=== PATIENT | male | born 1965 | race Caucasian/White ===

== ENCOUNTER → 2018-12-28 | Outpatient (CLI) | payer OTHER ==
[2018-12-28 10:08] LABS: ABSOLUTE EOSINOPHILS 0.2 thou/uL (0.0-0.7); ABSOLUTE LYMPHOCYTES 1.7 thou/uL (0.8-5.3); ABSOLUTE MONOCYTES 0.4 thou/uL (0.0-1.2); ABSOLUTE NEUTROPHILS 2.5 thou/uL (1.6-8.1); BASOPHILS 0.7 %; EOSINOPHILS 3.4 %; HEMOGLOBIN 17.9 gm/dL (14.0-18.0); LYMPHOCYTES 34.5 %; MCH 34.3 pg (26.0-34.0); MCHC 35.1 g/dL (28.0-37.0); MCV 97.7 fL (80.0-100.0); MONOCYTES 9.3 %; MPV 7.3 fl. (7.2-11.1); NUCLEATED RBCS 0 /100WBC; PLATELET COUNT* 256 thou/uL (150-400); POLYS 52.1 %; RBC 5.22 mil/uL (4.50-6.00); RDW-CV 13.2 % (10.5-14.5); WBC 4.8 thou/uL (4.0-11.0)
[2018-12-28 10:18] LABS: ALBUMIN 4.1 g/dL (3.4-5.0); ALKALINE PHOSPHATASE 44 U/L (46-116); ANION GAP 8 mmol/L (7-16); BUN 18 mg/dL (7-18); CHLORIDE 104 mmol/L (98-107); CHOLESTEROL 189 mg/dL (<200); CO2 29 mmol/L (21-32); CREATININE 1.1 mg/dL (0.6-1.3); GLUCOSE 103 mg/dL (70-99); HDL CHOLESTEROL 36 mg/dL (>40); LDL CHOLESTEROL 124 mg/dL (<100); POTASSIUM 4.7 mmol/L (3.5-5.1); SGOT 18 U/L (15-37); SGPT 42 U/L (30-65); SODIUM 141 mmol/L (136-145); TC:HDL 5.3 Ratio (Not establshd); TOTAL BILIRUBIN 0.4 mg/dL (<0.1-1.0); TOTAL PROTEIN 7.6 g/dL (6.4-8.2); TRIGLYCERIDE 147 mg/dL (<150); VLDL 29 mg/dL (<40)
[2018-12-28 10:19] LABS: SERUM ASSESSMENT Clear
== END ==
LOC: M.RAD 09:34
PROVIDERS: Nurse Practitioner Family
DX: R05 Cough (principal); R39.198 Other difficulties with micturition; Z76.89 Persons encountering health services in other specified circumstances

== ENCOUNTER → 2019-11-14 | Outpatient (CLI) | payer OTHER | LOC: M.CT 08:52 | PROVIDERS: ATTEND Nurse Practitioner Family | DX: K57.30 Diverticulosis of large intestine without perforation or abscess without bleeding (principal); R16.0 Hepatomegaly, not elsewhere classified; R74.8 Abnormal levels of other serum enzymes ==